=== PATIENT | male | born 1990 | race Caucasian/White ===

== ENCOUNTER 2020-02-02 19:12 | Emergency (ER) | payer BC ==
[~2020-02-02] VITALS: Ht 177.8 cm; Wt 84.1 kg
[~2020-02-02 19:12] MED LIST: NO HOME MEDICATIONS
[2020-02-02 19:18] VITALS: TEMP 98.2
[2020-02-02 19:58] VITALS: BP 131/87; PULSE 70
== END 2020-02-02 19:59 | disposition home or self-care (01) ==
LOC: COL.ER 19:12
DX: S61.211A Laceration without foreign body of left index finger without damage to nail, initial encounter (principal); W26.0XXA Contact with knife, initial encounter; Y92.009 Unspecified place in unspecified non-institutional (private) residence as the place of occurrence of the external cause